=== PATIENT | female | born 1995 | race Two or more races ===

== ENCOUNTER 2022-07-11 05:26 | Inpatient (IN) | payer OTHER ==
[~2022-07-11] VITALS: Ht 160 cm; Wt 81.6 kg
[2022-07-11] MEDS ORDERED: PRENATAL CAPLE1 EAC1 PO (06:46)
== END 2022-07-13 13:29 | disposition home or self-care (01) | DRG 807 ==
LOC: OB/GYN 05:26 → LDR 05:26 → OB/GYN 12:29
PROVIDERS: ADMIT Specialist; ATTEND Specialist
PROC: 10D07Z6 Extraction of Products of Conception, Vacuum, Via Natural or Artificial Opening (ICD-10-PCS; principal; 2022-07-11)
PROC: 0KQM0ZZ Repair Perineum Muscle, Open Approach (ICD-10-PCS; 2022-07-11)
PROC: 0UQMXZZ Repair Vulva, External Approach (ICD-10-PCS; 2022-07-11)
PROC: 4A1HXCZ Monitoring of Products of Conception, Cardiac Rate, External Approach (ICD-10-PCS; 2022-07-11)
DX: O70.1 Second degree perineal laceration during delivery (principal); Z37.0 Single live birth; O71.82 Other specified trauma to perineum and vulva; O99.820 Streptococcus B carrier state complicating pregnancy; O66.5 Attempted application of vacuum extractor and forceps; Z3A.38 38 weeks gestation of pregnancy; Z20.822 Contact with and (suspected) exposure to COVID-19